=== PATIENT | female | born 1965 | race Caucasian/White ===

== ENCOUNTER 2022-08-22 09:44 | Outpatient (CLI) | payer SELFPAY | END 2022-08-22 09:45 | disposition home or self-care (01) | LOC: PET 09:44 | PROVIDERS: ATTEND Radiology Radiation Oncology | DX: C53.8 Malignant neoplasm of overlapping sites of cervix uteri (principal); N13.30 Unspecified hydronephrosis | CPT/HCPCS: 78815; A9552 ==

== ENCOUNTER 2022-09-23 14:03 | Outpatient (CLI) | payer MEDICAID | END 2022-09-23 14:04 | disposition home or self-care (01) | LOC: TBSIIMAG 14:03 | PROVIDERS: ATTEND Radiology Radiation Oncology | DX: C53.9 Malignant neoplasm of cervix uteri, unspecified (principal); N13.30 Unspecified hydronephrosis | CPT/HCPCS: 72197 ==

== ENCOUNTER 2022-11-06 09:38 | Outpatient (CLI) | payer MEDICAID, OTHER ==
[2022-11-06] MEDS ORDERED: Magnevist 469MG/ML 20 ML VIAL ONE (11:46)
== END 2022-11-06 09:39 | disposition home or self-care (01) ==
LOC: MRI 09:38
PROVIDERS: ATTEND Radiology Radiation Oncology
DX: C53.9 Malignant neoplasm of cervix uteri, unspecified (principal)
CPT/HCPCS: 72197; A9579

== ENCOUNTER 2023-01-12 06:32 | Day surgery (SDC) | payer OTHER ==
[2023-01-09 10:49] VITALS: BMI 32.3
[2023-01-12 07:27] VITALS: BP 146/74; TEMP 98.4
[2023-01-12] MEDS ORDERED: Fentanyl 100 MCG/2 ML VIAL ONE ×2 (07:43→12:47)
[2023-01-12] MEDS ORDERED: Midazolam HCl 2 mg/2 ml Vial ONE (07:44)
[2023-01-12] MEDS ORDERED: cefTRIAXone\\ROCEPHIN 1 GM in Sodium Chloride 0.9% 100 ML IVPB SCH (08:30)
[2023-01-12] MEDS ORDERED: Iopamidol 300 61% 100 ML VIAL FS ONE (09:48)
[2023-01-12] MEDS ORDERED: Acetaminophen 500 MG TAB ONE (09:56)
== END 2023-01-12 15:50 | disposition short-term general hospital (02) ==
LOC: SPEC 06:32
PROVIDERS: ATTEND Urology
PROC: 0T9330Z Drainage of Right Kidney Pelvis with Drainage Device, Percutaneous Approach (ICD-10-PCS; principal; 2023-01-12)
DX: N13.1 Hydronephrosis with ureteral stricture, not elsewhere classified (principal); C53.8 Malignant neoplasm of overlapping sites of cervix uteri; C79.19 Secondary malignant neoplasm of other urinary organs; C79.11 Secondary malignant neoplasm of bladder; J45.909 Unspecified asthma, uncomplicated; Z87.891 Personal history of nicotine dependence; Z88.0 Allergy status to penicillin
CPT/HCPCS: 36415; 50430; 50431; 50432; 74150; 74176; 74485; 80053; 85025; C1729; J0696; J1170; J2250; J2270; J2272; J2405; J3010; J3480; J3490; J7050

== ENCOUNTER 2023-01-12 15:40 | Inpatient (IN) | payer OTHER ==
[2023-01-12] MEDS ORDERED: HYDROmorphone 0.5 MG/0.5 ML SYRINGE ONE (16:18)
[2023-01-12 16:32] LABS: #Basophils 0.2 thou/uL (0.0-0.2); #Eosinphils 0.1 thou/uL (0.0-0.7); #Lymphocytes 0.4 thou/uL (1.20-3.40); #Monocytes 0.6 thou/uL (0.11-0.59); #Neutrophils 10.4 thou/uL (1.40-6.50); %Basophils 1.5 % (0.0-1.0); %Eosinophils 0.6 % (0.0-10.0); %Lymphocytes 3.2 % (21.0-51.0); %Neutrophils 89.6 % (42.0-75.0); Hemoglobin 7.3 g/dL (12.0-16.0); Mean Corpuscular Hemoglobin 33.9 pg (27.0-31.0); Mean Platelet Volume 6.1 fL (7.4-10.4); Platelet Count 555 10x3/uL (130-400); RBC Distribution Width 14.5 % (11.5-14.5); Red Blood Cell (RBC) Count 2.16 mill/uL (4.20-5.40); White Blood Cell (WBC) Count 11.6 10x3/uL (4.8-10.8)
[2023-01-12 16:52] LABS: ALT (SGPT) 14 U/L (8-55); AST (SGOT) 13 U/L (5-34); Albumin 3.3 g/dL (3.5-5.0); Alkaline Phosphatase 189 U/L (40-110); Anion Gap 14 mmol/L (10-20); BUN (Urea Nitrogen) 14 mg/dL (9.8-20.1); Bilirubin, Total 0.3 mg/dL (0.2-1.2); Calc. Creatinine Clearance 0 mL/min (70-130); Calcium 9.1 mg/dL (7.8-10.44); Carbon Dioxide 26 mmol/L (22-29); Chloride 106 mmol/L (98-107); Estimated GFR 63; Globulin 3.6 g/dL (2.4-3.5); Glucose 105 mg/dL (70-105); Potassium 3.8 mmol/L (3.5-5.1); Protein, Total 6.9 g/dL (6.0-8.3); Sodium 142 mmol/L (136-145)
[2023-01-12] MEDS ORDERED: Senokot S 8.6-50 MG TAB PO PRN (17:28)
[2023-01-12] MEDS ORDERED: Acetaminophen 500 MG TAB PO PRN (17:33)
[2023-01-12] MEDS ORDERED: Ondansetron PF 4 MG/2 ML Vial ONE (18:11)
[2023-01-12] MEDS: Ondansetron PF 4 MG/2 ML Vial IVP PRN (18:15)
[2023-01-12] MEDS ORDERED: cefTRIAXone\\ROCEPHIN 2 GM VIAL ONE (18:16)
[2023-01-12] MEDS ORDERED: Acetaminophen 500 MG TAB ONE (18:16)
[2023-01-12] MEDS: Acetaminophen 500 MG TAB PO SCH (18:25)
[2023-01-12] MEDS: cefTRIAXone\\ROCEPHIN 2 GM in Sodium Chloride 0.9% 100 ML IVPB SCH (18:26)
[2023-01-12] MEDS ORDERED: Morphine 4 MG/ML VIAL ONE (20:41)
[2023-01-12] MEDS: Senokot S 8.6-50 MG TAB PO SCH (23:13)
[2023-01-12] MEDS ORDERED: HYDROcodone/Acetaminophen 5/325 mg Tablet ONE (23:21)
[2023-01-12] MEDS: HYDROcodone/Acetaminophen 5/325 mg Tablet PO PRN (23:23)
[2023-01-13] MEDS: Acetaminophen 500 MG TAB PO SCH ×3 (03:24→17:48)
[2023-01-13] MEDS: Morphine 2 MG/ML VIAL SLOW IVP PRN (04:13)
[2023-01-13] MEDS ORDERED: Morphine 4 MG/ML VIAL ONE (04:15)
[2023-01-13] MEDS ORDERED: HYDROcodone/Acetaminophen 5/325 mg Tablet ONE ×2 (07:27→11:37)
[2023-01-13] MEDS: HYDROcodone/Acetaminophen 5/325 mg Tablet PO PRN ×4 (07:35→20:03)
[2023-01-13 07:40] LABS: #Eosinphils 0.1 thou/uL (0.0-0.7); #Lymphocytes 0.7 thou/uL (1.20-3.40); #Monocytes 0.8 thou/uL (0.11-0.59); #Neutrophils 7.4 thou/uL (1.40-6.50); %Basophils 0.2 % (0.0-1.0); %Eosinophils 1.1 % (0.0-10.0); %Lymphocytes 7.6 % (21.0-51.0); %Monocytes 9.1 % (0.0-10.0); Hemoglobin 6.9 g/dL (12.0-16.0); Mean Corpuscular HGB CONC 32.7 g/dL (32.0-36.0); Mean Corpuscular Hemoglobin 33.4 pg (27.0-31.0); Mean Platelet Volume 5.5 fL (7.4-10.4); Platelet Count 545 10x3/uL (130-400); RBC Distribution Width 14.6 % (11.5-14.5); Red Blood Cell (RBC) Count 2.08 mill/uL (4.20-5.40); White Blood Cell (WBC) Count 9.1 10x3/uL (4.8-10.8)
[2023-01-13 08:02] LABS: Anion Gap 15 mmol/L (10-20); BUN (Urea Nitrogen) 12 mg/dL (9.8-20.1); Calc. Creatinine Clearance 0 mL/min (70-130); Calcium 9.2 mg/dL (7.8-10.44); Carbon Dioxide 26 mmol/L (22-29); Chloride 104 mmol/L (98-107); Estimated GFR 66; Glucose 94 mg/dL (70-105); Potassium 3.1 mmol/L (3.5-5.1); Sodium 142 mmol/L (136-145)
[2023-01-13] MEDS ORDERED: Potassium Chloride 10 MEQ in Premix Bag 1 BAG IVPB SCH (08:45)
[2023-01-13] MEDS ORDERED: Iopamidol 300 61% 100 ML VIAL FS ONE (09:37)
[2023-01-13] MEDS: Senokot S 8.6-50 MG TAB PO SCH ×2 (09:40→20:06)
[2023-01-13 17:02] VITALS: BMI 31.4
[2023-01-13] MEDS: Sodium Chloride 0.9% 1,000 ML IV SCH (17:49)
[2023-01-13] MEDS: cefTRIAXone\\ROCEPHIN 2 GM in Sodium Chloride 0.9% 100 ML IVPB SCH (17:52)
[2023-01-14] MEDS: HYDROcodone/Acetaminophen 5/325 mg Tablet PO PRN ×6 (00:30→21:21)
[2023-01-14] MEDS: Melatonin 3 MG TAB PO PRN ×2 (00:31→21:21)
[2023-01-14] MEDS: Acetaminophen 500 MG TAB PO SCH ×3 (01:13→17:48)
[2023-01-14] MEDS: Ondansetron PF 4 MG/2 ML Vial IVP PRN (03:27)
[2023-01-14] MEDS ORDERED: hydrALAZINE 20 MG/ML VIAL SLOW IVP PRN (06:44)
[2023-01-14 07:37] LABS: Hemoglobin 8.7 g/dL (12.0-16.0); Mean Corpuscular HGB CONC 33.8 g/dL (32.0-36.0); Mean Corpuscular Hemoglobin 31.3 pg (27.0-31.0); Mean Corpuscular Volume 92.8 fl (78.0-98.0); Mean Platelet Volume 6.1 fL (7.4-10.4); Platelet Count 554 10x3/uL (130-400); RBC Distribution Width 21.4 % (11.5-14.5); Red Blood Cell (RBC) Count 2.76 mill/uL (4.20-5.40); White Blood Cell (WBC) Count 11.1 10x3/uL (4.8-10.8)
[2023-01-14 07:38] LABS: Anion Gap 15 mmol/L (10-20); BUN (Urea Nitrogen) 12 mg/dL (9.8-20.1); Calc. Creatinine Clearance 91 mL/min (70-130); Calcium 8.9 mg/dL (7.8-10.44); Carbon Dioxide 24 mmol/L (22-29); Chloride 105 mmol/L (98-107); Estimated GFR 73; Glucose 89 mg/dL (70-105); Potassium 3.3 mmol/L (3.5-5.1); Sodium 141 mmol/L (136-145)
[2023-01-14] MEDS ORDERED: Potassium Chloride 20 MEQ TAB PO SCH (08:00)
[2023-01-14] MEDS: Senokot S 8.6-50 MG TAB PO SCH ×2 (09:19→21:21)
[2023-01-14] MEDS: Sodium Chloride 0.9% 1,000 ML IV SCH ×2 (09:21→21:17)
[2023-01-14] MEDS: cefTRIAXone\\ROCEPHIN 2 GM in Sodium Chloride 0.9% 100 ML IVPB SCH (17:53)
[2023-01-15] MEDS: HYDROcodone/Acetaminophen 5/325 mg Tablet PO PRN ×4 (01:44→13:15)
[2023-01-15] MEDS: Acetaminophen 500 MG TAB PO SCH ×3 (01:50→17:11)
[2023-01-15] MEDS: Sodium Chloride 0.9% 1,000 ML IV SCH (05:27)
[2023-01-15] MEDS ORDERED: Simethicone Chewable 80 MG TAB PO PRN ×2 (05:33→15:11)
[2023-01-15] MEDS ORDERED: Polyethylene Glycol 3350 17 GM Packet PO SCH (06:00)
[2023-01-15 07:27] LABS: #Eosinphils 0.3 thou/uL (0.0-0.7); #Lymphocytes 0.8 thou/uL (1.20-3.40); #Monocytes 0.9 thou/uL (0.11-0.59); #Neutrophils 8.9 thou/uL (1.40-6.50); %Basophils 0.2 % (0.0-1.0); %Eosinophils 2.6 % (0.0-10.0); %Lymphocytes 7.1 % (21.0-51.0); %Monocytes 8.1 % (0.0-10.0); %Neutrophils 82.1 % (42.0-75.0); Hemoglobin 8.8 g/dL (12.0-16.0); Mean Corpuscular HGB CONC 33.3 g/dL (32.0-36.0); Mean Corpuscular Hemoglobin 31.1 pg (27.0-31.0); Mean Corpuscular Volume 93.4 fl (78.0-98.0); Mean Platelet Volume 6.1 fL (7.4-10.4); Platelet Count 577 10x3/uL (130-400); RBC Distribution Width 21.2 % (11.5-14.5); Red Blood Cell (RBC) Count 2.81 mill/uL (4.20-5.40); White Blood Cell (WBC) Count 10.9 10x3/uL (4.8-10.8)
[2023-01-15 07:36] LABS: Anion Gap 14 mmol/L (10-20); BUN (Urea Nitrogen) 11 mg/dL (9.8-20.1); Calc. Creatinine Clearance 95 mL/min (70-130); Carbon Dioxide 24 mmol/L (22-29); Chloride 105 mmol/L (98-107); Estimated GFR 77; Glucose 89 mg/dL (70-105); Potassium 3.4 mmol/L (3.5-5.1); Sodium 140 mmol/L (136-145)
[2023-01-15] MEDS: Senokot S 8.6-50 MG TAB PO SCH ×2 (09:03→21:01)
[2023-01-15] MEDS ORDERED: Ondansetron ODT 4 MG TAB PO PRN (09:42)
[2023-01-15] MEDS ORDERED: Potassium Chloride 20 MEQ TAB PO SCH (12:00)
[2023-01-15] MEDS: HYDROcodone/Acetaminophen 10/325 mg Tablet PO PRN (17:10)
[2023-01-15] MEDS: cefTRIAXone\\ROCEPHIN 2 GM in Sodium Chloride 0.9% 100 ML IVPB SCH (17:11)
[2023-01-15] MEDS: Morphine 2 MG/ML VIAL SLOW IVP PRN (20:56)
[2023-01-15] MEDS: Melatonin 3 MG TAB PO PRN (20:56)
[2023-01-16] MEDS: HYDROcodone/Acetaminophen 10/325 mg Tablet PO PRN ×6 (00:12→23:23)
[2023-01-16] MEDS: Acetaminophen 500 MG TAB PO SCH ×3 (01:46→17:20)
[2023-01-16 05:07] LABS: Hemoglobin 8.4 g/dL (12.0-16.0); Mean Corpuscular HGB CONC 32.6 g/dL (32.0-36.0); Mean Corpuscular Hemoglobin 30.7 pg (27.0-31.0); Mean Corpuscular Volume 94.3 fl (78.0-98.0); Platelet Count 520 10x3/uL (130-400); RBC Distribution Width 20.7 % (11.5-14.5); Red Blood Cell (RBC) Count 2.72 mill/uL (4.20-5.40)
[2023-01-16 05:15] LABS: Anion Gap 13 mmol/L (10-20); BUN (Urea Nitrogen) 11 mg/dL (9.8-20.1); Calc. Creatinine Clearance 94 mL/min (70-130); Calcium 9.2 mg/dL (7.8-10.44); Carbon Dioxide 24 mmol/L (22-29); Chloride 109 mmol/L (98-107); Estimated GFR 76; Glucose 93 mg/dL (70-105); Potassium 3.4 mmol/L (3.5-5.1); Sodium 143 mmol/L (136-145)
[2023-01-16] MEDS ORDERED: Potassium Chloride 20 MEQ TAB PO SCH (08:00)
[2023-01-16] MEDS: Senokot S 8.6-50 MG TAB PO SCH ×2 (08:35→20:11)
[2023-01-16] MEDS: Polyethylene Glycol 3350 17 GM Packet PO SCH (11:58)
[2023-01-16] MEDS: cefTRIAXone\\ROCEPHIN 2 GM in Sodium Chloride 0.9% 100 ML IVPB SCH (17:19)
[2023-01-16] MEDS: Melatonin 3 MG TAB PO PRN (20:11)
[2023-01-17] MEDS: Acetaminophen 500 MG TAB PO SCH ×2 (02:02→08:35)
[2023-01-17] MEDS: HYDROcodone/Acetaminophen 10/325 mg Tablet PO PRN ×2 (03:41→08:33)
[2023-01-17 06:31] LABS: Hemoglobin 9.3 g/dL (12.0-16.0); Mean Corpuscular HGB CONC 31.8 g/dL (32.0-36.0); Mean Corpuscular Hemoglobin 30.2 pg (27.0-31.0); Mean Corpuscular Volume 95.1 fl (78.0-98.0); Mean Platelet Volume 5.8 fL (7.4-10.4); Platelet Count 581 10x3/uL (130-400); RBC Distribution Width 20.5 % (11.5-14.5); Red Blood Cell (RBC) Count 3.07 mill/uL (4.20-5.40); White Blood Cell (WBC) Count 10.9 10x3/uL (4.8-10.8)
[2023-01-17 06:57] LABS: Anion Gap 14 mmol/L (10-20); BUN (Urea Nitrogen) 12 mg/dL (9.8-20.1); Calc. Creatinine Clearance 96 mL/min (70-130); Calcium 9.5 mg/dL (7.8-10.44); Carbon Dioxide 24 mmol/L (22-29); Chloride 108 mmol/L (98-107); Estimated GFR 78; Glucose 97 mg/dL (70-105); Potassium 4.3 mmol/L (3.5-5.1); Sodium 142 mmol/L (136-145)
[2023-01-17] MEDS: Polyethylene Glycol 3350 17 GM Packet PO SCH (08:35)
[2023-01-17] MEDS: Senokot S 8.6-50 MG TAB PO SCH (08:35)
[2023-01-17 12:11] VITALS: BP 167/92; TEMP 97.4
== END 2023-01-17 12:34 | disposition home or self-care (01) | DRG 920 ==
LOC: ERS 15:40 → ERHOLD 16:42 → OBSVTOIN 01-13 10:13 → T4-A 01-13 15:36
PROVIDERS: ADMIT Internal Medicine; ATTEND Family Medicine
PROC: BT111ZZ Fluoroscopy of Right Kidney using Low Osmolar Contrast (ICD-10-PCS; principal; 2023-01-13)
PROC: 30233N1 Transfusion of Nonautologous Red Blood Cells into Peripheral Vein, Percutaneous Approach (ICD-10-PCS; 2023-01-13)
DX: N99.840 Postprocedural hematoma of a genitourinary system organ or structure following a genitourinary system procedure (principal); C79.11 Secondary malignant neoplasm of bladder; C79.19 Secondary malignant neoplasm of other urinary organs; N13.8 Other obstructive and reflux uropathy; N82.8 Other female genital tract fistulae; N13.39 Other hydronephrosis; Z20.822 Contact with and (suspected) exposure to COVID-19; J45.909 Unspecified asthma, uncomplicated; K59.00 Constipation, unspecified; Y84.8 Other medical procedures as the cause of abnormal reaction of the patient, or of later complication, without mention of misadventure at the time of the procedure; C53.9 Malignant neoplasm of cervix uteri, unspecified; G89.3 Neoplasm related pain (acute) (chronic); D64.81 Anemia due to antineoplastic chemotherapy; T45.1X5A Adverse effect of antineoplastic and immunosuppressive drugs, initial encounter; Z88.1 Allergy status to other antibiotic agents; Z88.8 Allergy status to other drugs, medicaments and biological substances; Z79.899 Other long term (current) drug therapy; Z90.49 Acquired absence of other specified parts of digestive tract; Z98.51 Tubal ligation status; Z80.49 Family history of malignant neoplasm of other genital organs; Z80.6 Family history of leukemia; Z87.891 Personal history of nicotine dependence
CPT/HCPCS: 36415; 36416; 36430; 50430; 50431; 50432; 74150; 74176; 74485; 80048; 80053; 85025; 85027; 86850; 86900; 86901; 96374; C1729; J0696; J1170; J1642; J2250; J2270; J2272; J2405; J3010; J3480; J3490; J7050; P9016; Q0162; Q9967; U0003; U0005

== ENCOUNTER 2023-02-04 13:16 | Inpatient (IN) | payer OTHER ==
[2023-02-04 14:02] LABS: #Eosinphils 0.1 thou/uL (0.0-0.7); #Lymphocytes 0.7 thou/uL (1.20-3.40); #Monocytes 0.6 thou/uL (0.11-0.59); #Neutrophils 9.4 thou/uL (1.40-6.50); %Basophils 0.1 % (0.0-1.0); %Eosinophils 0.9 % (0.0-10.0); %Monocytes 5.7 % (0.0-10.0); %Neutrophils 87.3 % (42.0-75.0); Hemoglobin 7.4 g/dL (12.0-16.0); Mean Corpuscular HGB CONC 32.2 g/dL (32.0-36.0); Mean Corpuscular Hemoglobin 30.1 pg (27.0-31.0); Mean Corpuscular Volume 93.4 fl (78.0-98.0); Mean Platelet Volume 6.1 fL (7.4-10.4); Platelet Count 455 10x3/uL (130-400); RBC Distribution Width 18.7 % (11.5-14.5); Red Blood Cell (RBC) Count 2.45 mill/uL (4.20-5.40); White Blood Cell (WBC) Count 10.8 10x3/uL (4.8-10.8)
[2023-02-04 14:21] LABS: ALT (SGPT) 11 U/L (8-55); AST (SGOT) 9 U/L (5-34); Albumin 3.5 g/dL (3.5-5.0); Alkaline Phosphatase 163 U/L (40-110); Anion Gap 17 mmol/L (10-20); BUN (Urea Nitrogen) 41 mg/dL (9.8-20.1); Bilirubin, Total 0.3 mg/dL (0.2-1.2); CK (CPK) 20 U/L (29-168); Calc. Creatinine Clearance 0 mL/min (70-130); Calcium 9.6 mg/dL (7.8-10.44); Carbon Dioxide 21 mmol/L (22-29); Chloride 107 mmol/L (98-107); Estimated GFR 21; Globulin 3.2 g/dL (2.4-3.5); Glucose 111 mg/dL (70-105); Lipase 6 U/L (8-78); Potassium 4.8 mmol/L (3.5-5.1); Protein, Total 6.7 g/dL (6.0-8.3); Sodium 140 mmol/L (136-145)
[2023-02-04] MEDS ORDERED: Ondansetron PF 4 MG/2 ML Vial ONE (15:24)
[2023-02-04] MEDS ORDERED: Morphine 4 MG/ML VIAL ONE ×2 (15:25→17:57)
[2023-02-04] MEDS ORDERED: Acetaminophen 325 MG TAB PO PRN (19:04)
[2023-02-04] MEDS ORDERED: Morphine 2 MG/ML VIAL SLOW IVP PRN (19:09)
[2023-02-04] MEDS ORDERED: Heparin 5,000 UNITS/ML VIAL SC SCH (21:00)
[2023-02-04] MEDS: Ondansetron ODT 4 MG TAB PO PRN (21:10)
[2023-02-04] MEDS: Lactated Ringer's 1,000 ML IV SCH (21:10)
[2023-02-04] MEDS: HYDROcodone/Acetaminophen 10/325 mg Tablet PO SCH (21:10)
[2023-02-04] MEDS ORDERED: diphenhydrAMINE 25 MG CAP PO SCH (21:15)
[2023-02-05] MEDS: HYDROcodone/Acetaminophen 10/325 mg Tablet PO SCH ×6 (01:40→21:11)
[2023-02-05] MEDS: Ondansetron ODT 4 MG TAB PO PRN ×2 (05:10→13:13)
[2023-02-05] MEDS: Lactated Ringer's 1,000 ML IV SCH ×2 (05:30→07:57)
[2023-02-05 07:04] LABS: #Eosinphils 0.2 thou/uL (0.0-0.7); #Lymphocytes 0.7 thou/uL (1.20-3.40); #Neutrophils 8.5 thou/uL (1.40-6.50); %Monocytes 9.2 % (0.0-10.0); %Neutrophils 81.7 % (42.0-75.0); Hemoglobin 6.3 g/dL (12.0-16.0); Mean Corpuscular HGB CONC 31.9 g/dL (32.0-36.0); Mean Corpuscular Hemoglobin 30.3 pg (27.0-31.0); Mean Platelet Volume 6.1 fL (7.4-10.4); Platelet Count 467 10x3/uL (130-400); RBC Distribution Width 18.3 % (11.5-14.5); Red Blood Cell (RBC) Count 2.08 mill/uL (4.20-5.40); White Blood Cell (WBC) Count 10.4 10x3/uL (4.8-10.8)
[2023-02-05 07:26] LABS: Anion Gap 14 mmol/L (10-20); BUN (Urea Nitrogen) 38 mg/dL (9.8-20.1); Calc. Creatinine Clearance 0 mL/min (70-130); Calcium 8.8 mg/dL (7.8-10.44); Carbon Dioxide 20 mmol/L (22-29); Chloride 109 mmol/L (98-107); Estimated GFR 18; Glucose 99 mg/dL (70-105); Potassium 5.2 mmol/L (3.5-5.1); Sodium 138 mmol/L (136-145)
[2023-02-05] MEDS: Senokot S 8.6-50 MG TAB PO SCH ×2 (07:58→21:11)
[2023-02-05 08:21] LABS: INR-International Normal Ratio 1.1; PTT 31.7 sec (22.9-36.1); Prothrombin Time 15.1 sec (12.0-14.7)
[2023-02-05] MEDS ORDERED: Acetaminophen 325 MG TAB PO PRN (10:45)
[2023-02-05 18:36] LABS: Hemoglobin 7.9 g/dL (12.0-16.0)
[2023-02-05] MEDS: Ferric Subsulfate Topical Solution TOP SCH (18:37)
[2023-02-05] MEDS: Promethazine 25 MG TAB PO PRN (21:11)
[2023-02-05 22:39] VITALS: BMI 27.4
[2023-02-06] MEDS: HYDROcodone/Acetaminophen 10/325 mg Tablet PO SCH ×6 (00:15→20:15)
[2023-02-06] MEDS: Promethazine 25 MG TAB PO PRN ×2 (05:40→22:50)
[2023-02-06 06:32] LABS: Hemoglobin 7.8 g/dL (12.0-16.0); Mean Corpuscular HGB CONC 32.7 g/dL (32.0-36.0); Mean Corpuscular Volume 94.8 fl (78.0-98.0); Platelet Count 457 10x3/uL (130-400); RBC Distribution Width 17.3 % (11.5-14.5); Red Blood Cell (RBC) Count 2.51 mill/uL (4.20-5.40); White Blood Cell (WBC) Count 11.9 10x3/uL (4.8-10.8)
[2023-02-06 06:56] LABS: Anion Gap 15 mmol/L (10-20); BUN (Urea Nitrogen) 40 mg/dL (9.8-20.1); Calc. Creatinine Clearance 20 mL/min (70-130); Calcium 8.9 mg/dL (7.8-10.44); Carbon Dioxide 20 mmol/L (22-29); Chloride 105 mmol/L (98-107); Estimated GFR 14; Glucose 86 mg/dL (70-105); Potassium 4.6 mmol/L (3.5-5.1); Sodium 135 mmol/L (136-145)
[2023-02-06] MEDS: Senokot S 8.6-50 MG TAB PO SCH ×2 (08:02→20:15)
[2023-02-06] MEDS ORDERED: HYDROcodone/Acetaminophen 5/325 mg Tablet PO PRN (11:41)
[2023-02-06] MEDS: Simethicone Chewable 80 MG TAB PO PRN (14:48)
[2023-02-06] MEDS: Ferric Subsulfate Topical Solution TOP SCH (18:53)
[2023-02-06] MEDS: diphenhydrAMINE 25 MG CAP PO SCH (20:15)
[2023-02-06] MEDS: HYDROcodone/Acetaminophen 5/325 mg Tablet PO PRN (22:50)
[2023-02-07] MEDS: HYDROcodone/Acetaminophen 10/325 mg Tablet PO SCH ×6 (01:11→20:39)
[2023-02-07] MEDS: Simethicone Chewable 80 MG TAB PO PRN ×4 (01:12→22:19)
[2023-02-07] MEDS: Senokot S 8.6-50 MG TAB PO SCH ×2 (07:46→20:40)
[2023-02-07 07:49] LABS: #Eosinphils 0.3 thou/uL (0.0-0.7); #Lymphocytes 0.6 thou/uL (1.20-3.40); #Monocytes 0.8 thou/uL (0.11-0.59); #Neutrophils 10.9 thou/uL (1.40-6.50); %Eosinophils 2.4 % (0.0-10.0); %Monocytes 6.3 % (0.0-10.0); %Neutrophils 86.2 % (42.0-75.0); Hemoglobin 7.5 g/dL (12.0-16.0); Mean Corpuscular HGB CONC 31.3 g/dL (32.0-36.0); Mean Corpuscular Hemoglobin 29.8 pg (27.0-31.0); Mean Corpuscular Volume 95.2 fl (78.0-98.0); Platelet Count 468 10x3/uL (130-400); RBC Distribution Width 17.4 % (11.5-14.5); Red Blood Cell (RBC) Count 2.52 mill/uL (4.20-5.40); White Blood Cell (WBC) Count 12.6 10x3/uL (4.8-10.8)
[2023-02-07] MEDS: Promethazine 25 MG TAB PO PRN ×2 (07:50→20:38)
[2023-02-07 07:59] LABS: Anion Gap 14 mmol/L (10-20); BUN (Urea Nitrogen) 44 mg/dL (9.8-20.1); Calc. Creatinine Clearance 19 mL/min (70-130); Calcium 8.9 mg/dL (7.8-10.44); Carbon Dioxide 20 mmol/L (22-29); Chloride 106 mmol/L (98-107); Estimated GFR 13; Glucose 93 mg/dL (70-105); Potassium 5.2 mmol/L (3.5-5.1); Sodium 135 mmol/L (136-145)
[2023-02-07 10:54] LABS: Anion Gap 16 mmol/L (10-20); BUN (Urea Nitrogen) 45 mg/dL (9.8-20.1); Calc. Creatinine Clearance 18 mL/min (70-130); Calcium 8.9 mg/dL (7.8-10.44); Carbon Dioxide 18 mmol/L (22-29); Chloride 106 mmol/L (98-107); Estimated GFR 13; Glucose 98 mg/dL (70-105); Potassium 4.8 mmol/L (3.5-5.1); Sodium 135 mmol/L (136-145)
[2023-02-07] MEDS: Ondansetron ODT 4 MG TAB PO PRN (12:49)
[2023-02-07] MEDS: Ferric Subsulfate Topical Solution TOP SCH (19:30)
[2023-02-07] MEDS: diphenhydrAMINE 25 MG CAP PO SCH (20:39)
[2023-02-07] MEDS: HYDROcodone/Acetaminophen 5/325 mg Tablet PO PRN (22:20)
[2023-02-08] MEDS: HYDROcodone/Acetaminophen 10/325 mg Tablet PO SCH ×6 (00:59→20:20)
[2023-02-08] MEDS: Ondansetron ODT 4 MG TAB PO PRN (00:59)
[2023-02-08] MEDS: Promethazine 25 MG TAB PO PRN ×2 (05:06→20:21)
[2023-02-08 07:40] LABS: Anion Gap 15 mmol/L (10-20); BUN (Urea Nitrogen) 49 mg/dL (9.8-20.1); Calc. Creatinine Clearance 16 mL/min (70-130); Calcium 8.8 mg/dL (7.8-10.44); Carbon Dioxide 17 mmol/L (22-29); Chloride 106 mmol/L (98-107); Estimated GFR 11; Glucose 87 mg/dL (70-105); Potassium 4.9 mmol/L (3.5-5.1); Sodium 133 mmol/L (136-145)
[2023-02-08 07:43] LABS: #Eosinphils 0.3 thou/uL (0.0-0.7); #Lymphocytes 0.6 thou/uL (1.20-3.40); #Monocytes 0.7 thou/uL (0.11-0.59); #Neutrophils 10.3 thou/uL (1.40-6.50); %Eosinophils 2.8 % (0.0-10.0); %Monocytes 6.1 % (0.0-10.0); %Neutrophils 86.1 % (42.0-75.0); Hemoglobin 7.5 g/dL (12.0-16.0); Mean Corpuscular HGB CONC 32.2 g/dL (32.0-36.0); Mean Corpuscular Hemoglobin 30.8 pg (27.0-31.0); Mean Corpuscular Volume 95.8 fl (78.0-98.0); Platelet Count 454 10x3/uL (130-400); RBC Distribution Width 17.3 % (11.5-14.5); Red Blood Cell (RBC) Count 2.44 mill/uL (4.20-5.40)
[2023-02-08] MEDS: Senokot S 8.6-50 MG TAB PO SCH ×2 (08:15→20:24)
[2023-02-08] MEDS: Simethicone Chewable 80 MG TAB PO PRN ×3 (08:18→20:22)
[2023-02-08] MEDS: HYDROcodone/Acetaminophen 5/325 mg Tablet PO PRN ×2 (11:23→18:07)
[2023-02-08] MEDS: Ferric Subsulfate Topical Solution TOP SCH (17:56)
[2023-02-08] MEDS: diphenhydrAMINE 25 MG CAP PO SCH (20:22)
[2023-02-09] MEDS: HYDROcodone/Acetaminophen 10/325 mg Tablet PO SCH ×6 (00:27→20:09)
[2023-02-09] MEDS: Ondansetron ODT 4 MG TAB PO PRN ×2 (00:27→20:08)
[2023-02-09] MEDS: Promethazine 25 MG TAB PO PRN ×3 (04:23→23:38)
[2023-02-09] MEDS: Simethicone Chewable 80 MG TAB PO PRN ×3 (04:25→20:10)
[2023-02-09 06:16] LABS: #Eosinphils 0.2 thou/uL (0.0-0.7); #Lymphocytes 0.5 thou/uL (1.20-3.40); #Monocytes 0.6 thou/uL (0.11-0.59); #Neutrophils 10.7 thou/uL (1.40-6.50); %Basophils 0.1 % (0.0-1.0); %Eosinophils 1.9 % (0.0-10.0); %Lymphocytes 4.4 % (21.0-51.0); %Neutrophils 88.5 % (42.0-75.0); Hemoglobin 7.7 g/dL (12.0-16.0); Mean Corpuscular HGB CONC 31.7 g/dL (32.0-36.0); Mean Corpuscular Hemoglobin 30.3 pg (27.0-31.0); Mean Corpuscular Volume 95.4 fl (78.0-98.0); Mean Platelet Volume 5.6 fL (7.4-10.4); Platelet Count 441 10x3/uL (130-400); RBC Distribution Width 17.4 % (11.5-14.5); Red Blood Cell (RBC) Count 2.54 mill/uL (4.20-5.40); White Blood Cell (WBC) Count 12.1 10x3/uL (4.8-10.8)
[2023-02-09 06:40] LABS: Anion Gap 18 mmol/L (10-20); BUN (Urea Nitrogen) 55 mg/dL (9.8-20.1); Calc. Creatinine Clearance 16 mL/min (70-130); Calcium 9.3 mg/dL (7.8-10.44); Carbon Dioxide 18 mmol/L (22-29); Chloride 104 mmol/L (98-107); Estimated GFR 10; Glucose 91 mg/dL (70-105); Potassium 5.4 mmol/L (3.5-5.1); Sodium 135 mmol/L (136-145)
[2023-02-09] MEDS: Senokot S 8.6-50 MG TAB PO SCH ×2 (08:06→20:12)
[2023-02-09] MEDS: Polyethylene Glycol 3350 17 GM Packet PO SCH (10:12)
[2023-02-09] MEDS: Lactated Ringer's 1,000 ML IV SCH ×2 (10:13→23:40)
[2023-02-09 13:56] LABS: Anion Gap 16 mmol/L (10-20); BUN (Urea Nitrogen) 58 mg/dL (9.8-20.1); Calc. Creatinine Clearance 15 mL/min (70-130); Calcium 9.1 mg/dL (7.8-10.44); Carbon Dioxide 19 mmol/L (22-29); Chloride 103 mmol/L (98-107); Estimated GFR 10; Glucose 107 mg/dL (70-105); Potassium 5.5 mmol/L (3.5-5.1); Sodium 132 mmol/L (136-145)
[2023-02-09] MEDS ORDERED: LOKELMA 10 GM PACKET PO SCH (15:00)
[2023-02-09] MEDS: HYDROcodone/Acetaminophen 5/325 mg Tablet PO PRN ×2 (15:14→23:37)
[2023-02-09] MEDS: Ferric Subsulfate Topical Solution TOP SCH (17:57)
[2023-02-09] MEDS: diphenhydrAMINE 25 MG CAP PO SCH (20:09)
[2023-02-10] MEDS: HYDROcodone/Acetaminophen 10/325 mg Tablet PO SCH ×6 (00:37→20:11)
[2023-02-10] MEDS: Simethicone Chewable 80 MG TAB PO PRN ×2 (04:14→20:12)
[2023-02-10] MEDS: Promethazine 25 MG TAB PO PRN ×2 (04:15→20:12)
[2023-02-10 07:22] LABS: #Eosinphils 0.1 thou/uL (0.0-0.7); #Lymphocytes 0.6 thou/uL (1.20-3.40); #Monocytes 0.7 thou/uL (0.11-0.59); #Neutrophils 10.8 thou/uL (1.40-6.50); %Basophils 0.1 % (0.0-1.0); %Eosinophils 1.2 % (0.0-10.0); %Lymphocytes 4.8 % (21.0-51.0); %Monocytes 5.5 % (0.0-10.0); %Neutrophils 88.4 % (42.0-75.0); Hemoglobin 7.4 g/dL (12.0-16.0); Mean Corpuscular HGB CONC 31.8 g/dL (32.0-36.0); Mean Corpuscular Hemoglobin 30.3 pg (27.0-31.0); Mean Corpuscular Volume 95.3 fl (78.0-98.0); Mean Platelet Volume 6.1 fL (7.4-10.4); Platelet Count 476 10x3/uL (130-400); RBC Distribution Width 17.4 % (11.5-14.5); Red Blood Cell (RBC) Count 2.43 mill/uL (4.20-5.40); White Blood Cell (WBC) Count 12.2 10x3/uL (4.8-10.8)
[2023-02-10 08:08] LABS: Anion Gap 17 mmol/L (10-20); BUN (Urea Nitrogen) 57 mg/dL (9.8-20.1); Calc. Creatinine Clearance 16 mL/min (70-130); Calcium 8.8 mg/dL (7.8-10.44); Carbon Dioxide 17 mmol/L (22-29); Chloride 105 mmol/L (98-107); Estimated GFR 10; Glucose 98 mg/dL (70-105); Potassium 4.6 mmol/L (3.5-5.1); Sodium 134 mmol/L (136-145)
[2023-02-10] MEDS: Senokot S 8.6-50 MG TAB PO SCH ×2 (09:06→20:14)
[2023-02-10] MEDS: Polyethylene Glycol 3350 17 GM Packet PO SCH (09:06)
[2023-02-10] MEDS ORDERED: Iopamidol 300 61% 100 ML VIAL FS ONE (09:58)
[2023-02-10] MEDS ORDERED: fentaNYL 50 mcg/mL 1 mL Vial ONE (10:44)
[2023-02-10] MEDS ORDERED: Midazolam HCl 2 mg/2 ml Vial ONE (10:44)
[2023-02-10] MEDS ORDERED: Ondansetron PF 4 MG/2 ML Vial ONE (11:15)
[2023-02-10] MEDS: Lactated Ringer's 1,000 ML IV SCH (12:55)
[2023-02-10] MEDS: diphenhydrAMINE 25 MG CAP PO SCH (20:12)
[2023-02-11] MEDS: HYDROcodone/Acetaminophen 10/325 mg Tablet PO SCH ×6 (00:28→20:12)
[2023-02-11] MEDS: Ondansetron ODT 4 MG TAB PO PRN ×2 (00:30→08:14)
[2023-02-11] MEDS: Lactated Ringer's 1,000 ML IV SCH ×2 (00:32→16:28)
[2023-02-11] MEDS: Promethazine 25 MG TAB PO PRN ×2 (04:14→18:40)
[2023-02-11 06:40] LABS: #Eosinphils 0.1 thou/uL (0.0-0.7); #Lymphocytes 0.6 thou/uL (1.20-3.40); #Monocytes 0.6 thou/uL (0.11-0.59); #Neutrophils 10.9 thou/uL (1.40-6.50); %Basophils 0.1 % (0.0-1.0); %Eosinophils 0.6 % (0.0-10.0); %Lymphocytes 4.9 % (21.0-51.0); %Neutrophils 89.4 % (42.0-75.0); Hemoglobin 5.8 g/dL (12.0-16.0); Mean Corpuscular HGB CONC 31.7 g/dL (32.0-36.0); Mean Corpuscular Hemoglobin 30.4 pg (27.0-31.0); Platelet Count 433 10x3/uL (130-400); RBC Distribution Width 17.5 % (11.5-14.5); Red Blood Cell (RBC) Count 1.91 mill/uL (4.20-5.40); White Blood Cell (WBC) Count 12.2 10x3/uL (4.8-10.8)
[2023-02-11 06:56] LABS: Anion Gap 15 mmol/L (10-20); BUN (Urea Nitrogen) 53 mg/dL (9.8-20.1); Calc. Creatinine Clearance 18 mL/min (70-130); Calcium 8.5 mg/dL (7.8-10.44); Carbon Dioxide 18 mmol/L (22-29); Chloride 107 mmol/L (98-107); Estimated GFR 12; Glucose 88 mg/dL (70-105); Potassium 5.1 mmol/L (3.5-5.1); Sodium 135 mmol/L (136-145)
[2023-02-11] MEDS: Polyethylene Glycol 3350 17 GM Packet PO SCH (08:15)
[2023-02-11] MEDS: Senokot S 8.6-50 MG TAB PO SCH ×2 (08:15→20:13)
[2023-02-11] MEDS: HYDROcodone/Acetaminophen 5/325 mg Tablet PO PRN ×3 (09:54→22:24)
[2023-02-11] MEDS: Simethicone Chewable 80 MG TAB PO PRN (13:21)
[2023-02-11] MEDS: diphenhydrAMINE 25 MG CAP PO SCH (20:12)
[2023-02-11 20:57] LABS: Hemoglobin 8.4 g/dL (12.0-16.0)
[2023-02-12] MEDS: HYDROcodone/Acetaminophen 10/325 mg Tablet PO SCH ×6 (00:34→20:56)
[2023-02-12 06:59] LABS: #Eosinphils 0.2 thou/uL (0.0-0.7); #Lymphocytes 0.7 thou/uL (1.20-3.40); #Monocytes 0.8 thou/uL (0.11-0.59); #Neutrophils 10.8 thou/uL (1.40-6.50); %Basophils 0.1 % (0.0-1.0); %Eosinophils 1.5 % (0.0-10.0); %Lymphocytes 5.3 % (21.0-51.0); %Monocytes 6.4 % (0.0-10.0); %Neutrophils 86.6 % (42.0-75.0); Hemoglobin 8.9 g/dL (12.0-16.0); Mean Corpuscular HGB CONC 33.8 g/dL (32.0-36.0); Mean Corpuscular Hemoglobin 31.4 pg (27.0-31.0); Mean Corpuscular Volume 92.7 fl (78.0-98.0); Mean Platelet Volume 6.3 fL (7.4-10.4); Platelet Count 398 10x3/uL (130-400); RBC Distribution Width 16.9 % (11.5-14.5); Red Blood Cell (RBC) Count 2.84 mill/uL (4.20-5.40); White Blood Cell (WBC) Count 12.5 10x3/uL (4.8-10.8)
[2023-02-12 07:12] LABS: Anion Gap 15 mmol/L (10-20); BUN (Urea Nitrogen) 50 mg/dL (9.8-20.1); Calc. Creatinine Clearance 24 mL/min (70-130); Calcium 8.9 mg/dL (7.8-10.44); Carbon Dioxide 21 mmol/L (22-29); Chloride 105 mmol/L (98-107); Estimated GFR 18; Glucose 92 mg/dL (70-105); Potassium 4.3 mmol/L (3.5-5.1); Sodium 137 mmol/L (136-145)
[2023-02-12] MEDS: Ondansetron ODT 4 MG TAB PO PRN ×2 (08:02→17:03)
[2023-02-12] MEDS: Polyethylene Glycol 3350 17 GM Packet PO SCH (08:02)
[2023-02-12] MEDS: Senokot S 8.6-50 MG TAB PO SCH ×2 (08:03→20:56)
[2023-02-12 08:44] LABS: Anion Gap 15 mmol/L (10-20); BUN (Urea Nitrogen) 50 mg/dL (9.8-20.1); Calc. Creatinine Clearance 24 mL/min (70-130); Calcium 8.9 mg/dL (7.8-10.44); Carbon Dioxide 22 mmol/L (22-29); Chloride 105 mmol/L (98-107); Estimated GFR 18; Glucose 106 mg/dL (70-105); Potassium 4.5 mmol/L (3.5-5.1); Sodium 137 mmol/L (136-145)
[2023-02-12] MEDS: HYDROcodone/Acetaminophen 5/325 mg Tablet PO PRN ×2 (10:45→18:34)
[2023-02-12] MEDS: Promethazine 25 MG TAB PO PRN (12:50)
[2023-02-12] MEDS: Simethicone Chewable 80 MG TAB PO PRN (12:58)
[2023-02-12] MEDS: diphenhydrAMINE 25 MG CAP PO SCH (20:56)
[2023-02-13] MEDS: HYDROcodone/Acetaminophen 10/325 mg Tablet PO SCH ×4 (00:37→13:25)
[2023-02-13 07:02] LABS: #Eosinphils 0.3 thou/uL (0.0-0.7); #Lymphocytes 0.9 thou/uL (1.20-3.40); #Monocytes 0.6 thou/uL (0.11-0.59); #Neutrophils 9.6 thou/uL (1.40-6.50); %Basophils 0.2 % (0.0-1.0); %Eosinophils 2.6 % (0.0-10.0); %Lymphocytes 8.1 % (21.0-51.0); %Monocytes 5.6 % (0.0-10.0); %Neutrophils 83.5 % (42.0-75.0); Mean Corpuscular HGB CONC 34.4 g/dL (32.0-36.0); Mean Corpuscular Hemoglobin 32.1 pg (27.0-31.0); Mean Corpuscular Volume 93.5 fl (78.0-98.0); Mean Platelet Volume 6.2 fL (7.4-10.4); Platelet Count 399 10x3/uL (130-400); RBC Distribution Width 16.6 % (11.5-14.5); Red Blood Cell (RBC) Count 2.79 mill/uL (4.20-5.40); White Blood Cell (WBC) Count 11.5 10x3/uL (4.8-10.8)
[2023-02-13 07:13] LABS: Anion Gap 14 mmol/L (10-20); BUN (Urea Nitrogen) 38 mg/dL (9.8-20.1); Calc. Creatinine Clearance 32 mL/min (70-130); Carbon Dioxide 22 mmol/L (22-29); Chloride 103 mmol/L (98-107); Estimated GFR 25; Glucose 91 mg/dL (70-105); Potassium 4.6 mmol/L (3.5-5.1); Sodium 134 mmol/L (136-145)
[2023-02-13 08:00] VITALS: BP 111/74; TEMP 98
[2023-02-13] MEDS: Polyethylene Glycol 3350 17 GM Packet PO SCH (08:49)
[2023-02-13] MEDS: Senokot S 8.6-50 MG TAB PO SCH (08:49)
[2023-02-13] MEDS: HYDROcodone/Acetaminophen 5/325 mg Tablet PO PRN (11:24)
== END 2023-02-13 13:54 | disposition home or self-care (01) | DRG 948 ==
LOC: ERS 13:16 → T4-B 18:17 → OBSVTOIN 02-05 14:47 → T4-B 02-10 13:25
PROVIDERS: ADMIT Family Medicine; ATTEND Family Medicine
PROC: 30233N1 Transfusion of Nonautologous Red Blood Cells into Peripheral Vein, Percutaneous Approach (ICD-10-PCS; 2023-02-05)
PROC: 0T9430Z Drainage of Left Kidney Pelvis with Drainage Device, Percutaneous Approach (ICD-10-PCS; principal; 2023-02-10)
DX: G89.3 Neoplasm related pain (acute) (chronic) (principal); N13.39 Other hydronephrosis; N82.1 Other female urinary-genital tract fistulae; S37.011A Minor contusion of right kidney, initial encounter; N17.9 Acute kidney failure, unspecified; Z51.5 Encounter for palliative care; J45.909 Unspecified asthma, uncomplicated; C53.9 Malignant neoplasm of cervix uteri, unspecified; R19.7 Diarrhea, unspecified; G47.00 Insomnia, unspecified; N18.9 Chronic kidney disease, unspecified; R53.81 Other malaise; K59.00 Constipation, unspecified; N93.9 Abnormal uterine and vaginal bleeding, unspecified; D50.0 Iron deficiency anemia secondary to blood loss (chronic); R11.0 Nausea; E87.5 Hyperkalemia; R31.0 Gross hematuria; Z88.1 Allergy status to other antibiotic agents; Z88.8 Allergy status to other drugs, medicaments and biological substances; Z79.899 Other long term (current) drug therapy; Z90.49 Acquired absence of other specified parts of digestive tract; Z87.891 Personal history of nicotine dependence; Z98.51 Tubal ligation status; Z80.49 Family history of malignant neoplasm of other genital organs; Z93.6 Other artificial openings of urinary tract status; E86.0 Dehydration
CPT/HCPCS: 36415; 36430; 50430; 50432; 50437; 74176; 80048; 80053; 82550; 83690; 85025; 85027; 85610; 85730; 86850; 86900; 86901; 96374; 96375; 96376; G0378; J1642; J1956; J2250; J2270; J2272; J2405; J3010; J7120; P9016; Q0162; Q0169; Q9967

== ENCOUNTER 2023-05-11 07:02 | Day surgery (SDC) | payer OTHER ==
[2023-05-11 07:29] VITALS: BP 98/59; TEMP 98.2
[2023-05-11] MEDS ORDERED: Iopamidol 300 61% 30 ML VIAL ONE (11:39)
== END 2023-05-11 08:40 | disposition home or self-care (01) ==
LOC: SPEC 07:02
PROVIDERS: ATTEND Urology
PROC: 0T25X0Z Change Drainage Device in Kidney, External Approach (ICD-10-PCS; principal; 2023-05-11)
DX: N13.30 Unspecified hydronephrosis (principal)
CPT/HCPCS: 50431; 50435; C1729; Q9967

== ENCOUNTER → 2023-07-01 | Day surgery (SDC) | payer OTHER ==
[~2023-07-01] MED LIST: Iopamidol 300 61% 30 ML VIAL ONE; Midazolam HCl 2 mg/2 ml Vial ONE; fentaNYL 50 mcg/mL 1 mL Vial ONE
== END ==
LOC: SPEC 07:03
PROVIDERS: ATTEND Urology
PROC: 0T25X0Z Change Drainage Device in Kidney, External Approach (ICD-10-PCS; principal; 2023-07-01)
DX: N13.1 Hydronephrosis with ureteral stricture, not elsewhere classified (principal); C53.9 Malignant neoplasm of cervix uteri, unspecified
CPT/HCPCS: 50435; C1729; J1642; J2250; J3010; Q9967

== ENCOUNTER 2023-08-25 06:58 | Day surgery (SDC) | payer OTHER ==
[2023-08-25] MEDS ORDERED: fentaNYL 50 mcg/mL 1 mL Vial ONE (07:49)
[2023-08-25 09:35] VITALS: BP 120/86; TEMP 98
[2023-08-25] MEDS ORDERED: Iopamidol 300 61% 100 ML VIAL FS ONE (09:41)
[2023-08-25] MEDS ORDERED: FLU VACC QS2023-24(6MOS UP)/PF 60 MCG/0.5 ML SYRINGE IM ONE (14:00)
== END 2023-08-25 11:15 | disposition home or self-care (01) ==
LOC: SPEC 06:58
PROVIDERS: ATTEND Urology
PROC: 0T25X0Z Change Drainage Device in Kidney, External Approach (ICD-10-PCS; principal; 2023-08-25)
DX: N13.1 Hydronephrosis with ureteral stricture, not elsewhere classified (principal); C53.9 Malignant neoplasm of cervix uteri, unspecified
CPT/HCPCS: 50435; C1729; J1642; J3010; Q9967

== ENCOUNTER 2023-10-27 08:27 | Day surgery (SDC) | payer OTHER ==
[2023-10-27] MEDS ORDERED: Ondansetron PF 4 MG/2 ML Vial ONE (09:42)
[2023-10-27] MEDS ORDERED: fentaNYL 50 mcg/mL 1 mL Vial ONE (09:43)
[2023-10-27] MEDS ORDERED: Iopamidol 100 ML FS ONE (10:35)
[2023-10-27] MEDS ORDERED: Iopamidol 300 61% 100 ML VIAL FS ONE (11:12)
[2023-10-27] MEDS ORDERED: Sodium Bicarbonate 2.5 MEQ/5 ML SDV ONE (11:20)
== END 2023-10-27 12:45 | disposition home or self-care (01) ==
LOC: SPEC 08:27
PROVIDERS: ATTEND Urology
PROC: 0T25X0Z Change Drainage Device in Kidney, External Approach (ICD-10-PCS; principal; 2023-10-27)
DX: N13.30 Unspecified hydronephrosis (principal); C53.8 Malignant neoplasm of overlapping sites of cervix uteri
CPT/HCPCS: 50430; 50435; C1729; J1642; J2405; J3010; Q9967

== ENCOUNTER 2024-05-09 06:52 | Day surgery (SDC) | payer OTHER ==
[2024-05-09 08:30] VITALS: BP 134/87; TEMP 98.1
== END 2024-05-09 08:50 | disposition home or self-care (01) ==
LOC: SPEC 06:52
PROVIDERS: ATTEND Urology
PROC: 0T25X0Z Change Drainage Device in Kidney, External Approach (ICD-10-PCS; principal; 2024-05-09)
DX: N13.30 Unspecified hydronephrosis (principal)
CPT/HCPCS: 50435; 75984; C1729; C1769; J7030; Q9967

== ENCOUNTER 2024-06-06 09:30 | Outpatient (CLI) | payer OTHER | END 2024-06-06 09:31 | disposition home or self-care (01) | LOC: PET 09:30 | PROVIDERS: ATTEND Internal Medicine | DX: C53.9 Malignant neoplasm of cervix uteri, unspecified (principal) | CPT/HCPCS: 78815; A9552 ==

== ENCOUNTER 2024-07-22 07:03 | Day surgery (SDC) | payer OTHER ==
[2024-07-22] MEDS ORDERED: Sodium Chloride 0.9% 500 ML ONE (07:19)
[2024-07-22] MEDS ORDERED: Sodium Bicarbonate 0.5 MEQ/ML SDV 10 ML ONE (07:19)
[2024-07-22] MEDS ORDERED: Iopamidol 30 ML ONE (07:19)
[2024-07-22] MEDS ORDERED: Lidocaine 1% w/Epinephrine 1:100K 20 ML VIAL ONE (08:02)
[2024-07-22 09:02] VITALS: BP 164/90; TEMP 97.2
== END 2024-07-22 08:50 | disposition home or self-care (01) ==
LOC: SPEC 07:03
PROVIDERS: ATTEND Urology
PROC: 0T25X0Z Change Drainage Device in Kidney, External Approach (ICD-10-PCS; principal; 2024-07-22)
DX: N13.30 Unspecified hydronephrosis (principal); C53.8 Malignant neoplasm of overlapping sites of cervix uteri
CPT/HCPCS: 50435; 75984; C1729; C1769; J7030; Q9967

== ENCOUNTER 2024-09-14 10:15 | Outpatient (CLI) | payer OTHER | END 2024-09-14 10:16 | disposition home or self-care (01) | LOC: PET 10:15 | PROVIDERS: ATTEND Internal Medicine | DX: C53.9 Malignant neoplasm of cervix uteri, unspecified (principal) | CPT/HCPCS: 78815; A9552 ==

== ENCOUNTER 2024-09-21 07:03 | Day surgery (SDC) | payer OTHER ==
[2024-09-21] MEDS ORDERED: Iopamidol 30 ML ONE (07:13)
[2024-09-21] MEDS ORDERED: Sodium Chloride 0.9% 500 ML ONE (07:13)
[2024-09-21] MEDS ORDERED: Lidocaine 1% w/Epinephrine 1:100K 20 ML VIAL ONE (07:13)
[2024-09-21] MEDS ORDERED: Sodium Bicarbonate 2.5 MEQ/5 ML SDV ONE (07:13)
== END 2024-09-21 08:45 | disposition home or self-care (01) ==
LOC: SPEC 07:03
PROVIDERS: ATTEND Urology
PROC: 0T25X0Z Change Drainage Device in Kidney, External Approach (ICD-10-PCS; principal; 2024-09-21)
DX: N13.30 Unspecified hydronephrosis (principal); C53.8 Malignant neoplasm of overlapping sites of cervix uteri
CPT/HCPCS: 50435; 75984; C1729; C1769; J7030; Q9967

== ENCOUNTER → 2024-10-13 | Day surgery (SDC) | payer OTHER | LOC: EDSTATUS 10-12 10:30 → SDC 08:36 | PROVIDERS: ATTEND Urology | DX: Z48.01 Encounter for change or removal of surgical wound dressing (principal); C53.8 Malignant neoplasm of overlapping sites of cervix uteri; N13.30 Unspecified hydronephrosis | CPT/HCPCS: 99211 ==

== ENCOUNTER 2024-11-18 10:08 | Day surgery (SDC) | payer OTHER | END 2024-11-18 10:28 | disposition home or self-care (01) | LOC: SDC 10:08 | PROVIDERS: ATTEND Urology | DX: N13.30 Unspecified hydronephrosis (principal); Z88.1 Allergy status to other antibiotic agents ==

== ENCOUNTER 2024-11-25 07:15 | Day surgery (SDC) | payer OTHER ==
[2024-11-25] MEDS ORDERED: Sodium Bicarbonate 2.5 MEQ/5 ML SDV ONE (07:59)
[2024-11-25] MEDS ORDERED: Lidocaine 1% w/Epinephrine 1:100K 20 ML VIAL ONE (07:59)
[2024-11-25] MEDS ORDERED: Iopamidol 30 ML ONE (08:00)
[2024-11-25] MEDS ORDERED: Sodium Chloride 0.9% 500 ML ONE (08:00)
[2024-11-25] MEDS ORDERED: Iopamidol 100 ML FS ONE (08:44)
== END 2024-11-25 09:28 | disposition home or self-care (01) ==
LOC: SPEC 07:15
PROVIDERS: ATTEND Urology
PROC: 0T25X0Z Change Drainage Device in Kidney, External Approach (ICD-10-PCS; principal; 2024-11-25)
DX: N13.30 Unspecified hydronephrosis (principal); Z85.41 Personal history of malignant neoplasm of cervix uteri
CPT/HCPCS: 50435; 75984; C1729; C1769; J7030; Q9967

== ENCOUNTER → 2025-07-11 | Day surgery (SDC) | payer OTHER, MEDICAID ==
[~2025-07-11] MED LIST changes: +Iopamidol 100 ML FS ONE; -Iopamidol 300 61% 30 ML VIAL ONE; +Lidocaine 1% PF 5 ML VIAL ONE; -Midazolam HCl 2 mg/2 ml Vial ONE; +Sodium Bicarbonate 2.5 MEQ/5 ML SDV ONE; -fentaNYL 50 mcg/mL 1 mL Vial ONE
== END ==
LOC: SPEC 11:52
PROVIDERS: ATTEND Urology
PROC: 0T25X0Z Change Drainage Device in Kidney, External Approach (ICD-10-PCS; principal; 2025-07-11)
DX: N13.1 Hydronephrosis with ureteral stricture, not elsewhere classified (principal); C53.8 Malignant neoplasm of overlapping sites of cervix uteri; D64.9 Anemia, unspecified; Z88.0 Allergy status to penicillin; N13.30 Unspecified hydronephrosis; N39.498 Other specified urinary incontinence; Z96.0 Presence of urogenital implants
CPT/HCPCS: 50435; 75984; C1729; C1769; J7030; Q9967; 74178

== ENCOUNTER → 2025-09-01 | Day surgery (SDC) | payer OTHER, MEDICAID ==
[2025-09-01 10:55] VITALS: TEMP 98.8
[2025-09-01 10:59] VITALS: BP 164/84
== END ==
LOC: SPEC 08:38
PROVIDERS: ATTEND Urology
PROC: 0T25X0Z Change Drainage Device in Kidney, External Approach (ICD-10-PCS; principal; 2025-09-01)
DX: Z43.6 Encounter for attention to other artificial openings of urinary tract (principal); N13.5 Crossing vessel and stricture of ureter without hydronephrosis; Z87.891 Personal history of nicotine dependence
CPT/HCPCS: 50435; 75984; C1729; C1769; J7030; Q9967

== ENCOUNTER 2025-09-19 09:31 | Outpatient (CLI) | payer OTHER, MEDICAID | END 2025-09-19 10:15 | disposition home or self-care (01) | LOC: SDC 09:31 | PROVIDERS: ATTEND Urology | DX: N13.30 Unspecified hydronephrosis (principal); D64.9 Anemia, unspecified; N39.498 Other specified urinary incontinence | CPT/HCPCS: 99211 ==

== ENCOUNTER 2025-09-21 08:45 | Outpatient (CLI) | payer OTHER, MEDICAID | END 2025-09-21 08:46 | disposition home or self-care (01) | LOC: PET 08:45 | PROVIDERS: ATTEND Internal Medicine | DX: C53.8 Malignant neoplasm of overlapping sites of cervix uteri (principal); D50.9 Iron deficiency anemia, unspecified; Z79.899 Other long term (current) drug therapy | CPT/HCPCS: 78815; A9552 ==

== ENCOUNTER 2025-09-28 11:02 | Outpatient (CLI) | payer OTHER, MEDICAID ==
[2025-09-28 12:39] VITALS: BP 158/85
== END 2025-09-28 11:03 | disposition home or self-care (01) ==
LOC: SDC 11:02
PROVIDERS: ATTEND Urology
DX: N13.30 Unspecified hydronephrosis (principal); C53.8 Malignant neoplasm of overlapping sites of cervix uteri